=== PATIENT | male | born 1960 | race Caucasian/White ===

== ENCOUNTER 2018-12-06 18:30 | Emergency (ER) | payer OTHER ==
--- NOTE | 2018-12-06 19:03 | EDPHY ---
H & P Stated Complaint: brooks caheter issues Time Seen by Provider: 12/06/18 18:58 HPI/ROS: HPI: This is a 58-year-old male who presents with Chief Complaint: Brooks catheter removed Location: Quality: Brooks catheter removal Duration: 1 month Signs and Symptoms: no fever, no nausea, no vomiting, no hematemesis, no blood in stool, no abdominal bloating, no diarrhea, no back pain, no urinary symptoms , no testicular/groin pain, no indigestion, no chest pain, no shortness of breath Timing: Daily, chronic Severity: Mild Context: Patient had a prostate artery embolization performed 1 month ago by his urologist in [place] presents today with request to remove his Brooks catheter as he is in town for his son's college graduation. He was seen by his urologist on Monday passed his voiding trial but they decided to put the Brooks back in as he was traveling. At that time he was appropriate to have it removed and did not have any difficulties voiding in the office. He denies any fever, blood in his urine, back pain, abdominal pain, nausea, vomiting, testicular groin pain. Modifying Factors: Takes Flomax every evening Comment: ROS: A comprehensive 10 system review of systems is otherwise negative aside from elements mentioned in the history of present illness. MEDICAL/SURGICAL/SOCIAL HISTORY: Medical history: HTN, hyperlipidemia Surgical history: Prostate surgery Social history: Lives in [place]. Employed. . Nonsmoker. Family history noncontributory. CONSTITUTIONAL: Well-developed, well-nourished, adult white male, awake and alert, no obvious distress HEENT: Atraumatic and normocephalic, PERRL, EOMI. Nares patent; no rhinorrhea; no nasal mucosal edema. Tympanic membranes clear. Oropharynx clear, no exudate and moist pink mucosa. Airway patent. No lymphadenopathy. No meningismus. Cardiovascular: Normal S1/S2, regular rate, regular rhythm, without murmur rub or gallop. PULMONARY/CHEST: Symmetrical and nontender. Clear to auscultation bilaterally. Good air movement. No accessory muscle usage. ABDOMEN: Soft, nondistended, nontender, no rebound, no guarding, no peritoneal signs, no masses or organomegaly. No CVAT. Male : circumcised penis, bilateral descended testes, no testicular swelling, no testicular masses, no penile discharge, no lesions, negative Prehn's sign. Brooks catheter in place in the urethra draining light yellow urine. EXTREMITIES: 2/2 pulses, strength 5/5, no deformities, no clubbing, no cyanosis or edema. NEUROLOGICAL: no focal neuro deficits. GCS 15. SKIN: Warm and dry, no erythema. no rash. Good capillary refill. Source: Patient Exam Limitations: No limitations - Personal History Current Tetanus/Diphtheria Vaccine: Unsure Current Tetanus Diphtheria and Acellular Pertussis (TDAP): Unsure - Medical/Surgical History Hx Asthma: No Hx Chronic Respiratory Disease: No Hx Diabetes: No Hx Cardiac Disease: No Hx Renal Disease: No Hx Cirrhosis: No Hx Alcoholism: No Hx HIV/AIDS: No Hx Splenectomy or Spleen Trauma: No Other PMH: HTN, hyperlipidemia, PAE prostate surgery, - Social History Smoking Status: Never smoked Constitutional: Initial Vital Signs Temperature (C) 36.7 C 12/06/18 18:34 Heart Rate 89 12/06/18 18:34 Respiratory Rate 16 12/06/18 18:34 Blood Pressure 188/109 H 12/06/18 18:34 O2 Sat (%) 95 12/06/18 18:34 O2 Delivery Mode Room Air Allergies/Adverse Reactions: No Known Allergies Allergy (Unverified 12/06/18 18:33) Home Medications: Medication Instructions Recorded Ativan 12/06/18 Diovan 12/06/18 Flomax 12/06/18 Lipitor 12/06/18 Oxybutynin 12/06/18 Medical Decision Making ED Course/Re-evaluation: Vital signs reviewed and show elevated blood pressure upon arrival. Bladder scan at bedside per RN shows 2 mL Brooks catheter bag draining 120 mL light yellow urine 1905: Brooks catheter removed without difficulty by RN. Given fluids to drink and will keep until patient passes voiding trial. Patient politely declines urinalysis as "I do not have an infection." 2018: Notified by RN that patient urinated 200 mL of light yellow colored urine without difficulty. After monitoring in the emergency room for 4 hr with 2 voids, patient is appropriate to be discharged home with return precautions. This patient was seen under the supervision of my secondary supervising physician. I evaluated and cared for this patient with attending. Differential Diagnosis: Differential diagnosis includes but is not limited to BPH, urinary tract infection, sepsis, pyelonephritis, cystitis, urinary retention Departure - Departure Disposition: Home, Routine, Self-Care Clinical Impression: Indwelling Brooks catheter present BPH (benign prostatic hyperplasia) Qualifiers: Lower urinary tract symptom presence: symptoms present Lower urinary tract symptom detail: incomplete bladder emptying Qualified Code(s): N40.1 - Benign prostatic hyperplasia with lower urinary tract symptoms; R39.14 - Feeling of incomplete bladder emptying; R39.14 - Feeling of incomplete bladder emptying Condition: Good Instructions: Urinary Retention in Men (ED), Enlarged Prostate (BPH) (ED), Brooks Catheter Removal (DC) Additional Instructions: If Unable to void in 6 hour, please return to the emergency room for further evaluation and likely Brooks catheter placement. Continue to take Flomax daily. Referrals: José Dolan MD [Medical Doctor] - Follow Up Only If Needed
[2018-12-06 20:20] VITALS: BP 159/98
== END 2018-12-06 21:35 | disposition home or self-care (01) ==
PROC: 4A0D7LZ Measurement of Urinary Volume, Via Natural or Artificial Opening (ICD-10-PCS; principal; 2018-12-06)
DX: R39.14 Feeling of incomplete bladder emptying (principal); N40.1 Benign prostatic hyperplasia with lower urinary tract symptoms; I10 Essential (primary) hypertension; E78.5 Hyperlipidemia, unspecified